=== PATIENT | male | born 1980 | race Hispanic/Latino ===

== ENCOUNTER 2022-10-31 21:33 | Emergency (ER) | payer MEDICARE ==
[~2022-10-31] VITALS: Ht 162.6 cm; Wt 72.6 kg
[2022-10-31 22:01] VITALS: O2SAT 97
== END 2022-11-01 01:40 | disposition home or self-care (01) ==
LOC: ER 21:40
DX: R05.9 Cough, unspecified (principal); J02.8 Acute pharyngitis due to other specified organisms
CPT/HCPCS: 83518; 87070; 99282